=== PATIENT | male | born 1990 | race Caucasian/White ===

== ENCOUNTER 2020-04-14 18:03 | Emergency (ER) | payer SELFPAY ==
[~2020-04-14] VITALS: Ht 167.6 cm; Wt 84.1 kg
[2020-04-14 18:10] VITALS: BP 133/72; Ht 167.6 cm; Wt 84.1 kg
[2020-04-14] MEDS ORDERED: BACLOFEN20 M1 PO (20:08)
[2020-04-14] MEDS ORDERED: VOLTAREN75 MG PO (20:08)
== END 2020-04-14 20:53 | disposition home or self-care (01) ==
LOC: D.ER 18:03
DX: M25.511 Pain in right shoulder (principal); M79.18 Myalgia, other site; S46.812A Strain of other muscles, fascia and tendons at shoulder and upper arm level, left arm, initial encounter